=== PATIENT | male | born 1990 | race Caucasian/White ===

== ENCOUNTER 2021-09-05 12:23 | Emergency (ER) | payer MEDICAID ==
[~2021-09-05] VITALS: Ht 167.6 cm; Wt 68.2 kg
[2021-09-05 12:29] VITALS: BP 158/92
== END 2021-09-05 16:40 | disposition home or self-care (01) ==
LOC: ER 12:23
DX: Z13.89 Encounter for screening for other disorder (principal); Z20.822 Contact with and (suspected) exposure to COVID-19; R09.81 Nasal congestion; R09.89 Other specified symptoms and signs involving the circulatory and respiratory systems; R05.9 Cough, unspecified
CPT/HCPCS: 87635; 99283; C9803